=== PATIENT | female | born 1970 | race Caucasian/White ===

== ENCOUNTER → 2018-07-29 | Outpatient (CLI) | payer OTHER ==
[~2018-07-29] MED LIST: ALBU90OI INH; AZIT250 PO; AZIT500 PO; CARI350 PO; CEPH500 PO; CETI10 PO; CIPR500 PO; CLAR500 PO; CLIN150 PO; CLIN300 PO; CODGUAEL PO; CYCL10 PO; DIPH50 PO; DULO30; DULO30 PO; DULO60; DULO60 PO; ESCI10; HYDACE10B; HYDACE10B PO; HYDACE5 PO; HYDACE5325 PO; HYDACE7.5 PO; IBUP200 PO; IBUP400; IBUP800; IBUP800 PO; MELO7.5; MELO7.5 PO; META400 PO; META800; META800 PO; METPRE4DP PO; MULVITA; NAPR500 PO; NAPR550 PO; OXYACE10 PO; OXYACE5T PO; PHENA100 PO; PHENA200 PO; PROACE100 PO; PROM25 PO; PSEU120ER PO; ROFE25; RXCLIN PO; RXCYCL10 PO; RXHYDACE PO; RXMETA400 PO; RXMETA800 PO; RXNAPNA550 PO; RXPROACE PO; RXTRAM50 PO; SULF10OPSA OU; SULTRIDS PO; TRAM50 PO
== END | disposition home or self-care (01) ==
LOC: LAB EV 12:49 → LAB SHORT 12:49
DX: N39.0 Urinary tract infection, site not specified (principal)
CPT/HCPCS: 87077; 87086; 87186

== ENCOUNTER 2020-11-30 11:32 | Emergency (ER) | payer OTHER ==
[~2020-11-30] VITALS: Ht 165.1 cm; Wt 62.6 kg
[2020-11-30 12:14] LABS: BASOPHILS ABSOLUTE AUTO 0.06 K/mm3 (0.00-0.23); BASOPHILS PERCENT AUTO 1 % (0-2); EOSINOPHILS ABSOLUTE AUTO 0.09 K/mm3 (0.00-0.68); EOSINOPHILS PERCENT AUTO 1 % (0-6); Hematocrit 34.6 % (33.0-51.0); IMMATURE GRAN ABSOLUTE AUTO 0.01 K/mm3 (0.00-0.10); IMMATURE GRAN PERCENT AUTO 0 % (0-1); LYMPHOCYTES PERCENT AUTO 29 % (21-46); MONOCYTES ABSOLUTE AUTO 0.56 K/mm3 (0.16-1.47); MONOCYTES PERCENT AUTO 8 % (4-13); Mean Corpuscular HGB 28.4 pg (26.0-34.0); Mean Corpuscular HGB Conc 31.8 g/dL (31.5-36.5); Mean Corpuscular Volume 89 fL (80-100); Mean Platelet Volume 10.6 fL (9.1-12.4); NEUTROPHILS ABSOLUTE AUTO 4.03 K/mm3 (1.96-9.15); NEUTROPHILS PERCENT AUTO 61 % (41-73); Platelet Count 282 K/mm3 (150-400); RDW Coefficient Variation 13.2 % (11.7-14.2); RDW Standard Deviation 43.1 fL (35.1-46.3); Red Blood Cell Count 3.88 M/mm3 (3.80-5.20); White Blood Cell Count 6.65 K/mm3 (4.00-11.30)
[2020-11-30 12:42] LABS: Alanine Aminotransfer (ALT/SGP 23 U/L (12-78); Albumin, Blood 3.5 g/dL (3.4-5.0); Albumin/Globulin Ratio 0.9 (0.8-1.8); Alk Phos 56 U/L (50-136); Anion Gap 4 mmol/L (6-16); Aspartate Aminotrans (AST/SGOT 25 U/L (12-37); Bilirubin, Total 0.2 mg/dL (0.1-1.0); Blood Urea Nitrogen 11 mg/dL (8-24); Bun/Creatinine Ratio 12.9 (12.0-20.0); CO2, Blood 28 mmol/L (21-32); Calcium, Blood 8.8 mg/dL (8.5-10.1); Chloride, Blood 109 mmol/L (98-108); Creatinine, Blood 0.85 mg/dL (0.40-1.00); Globulin, Blood 3.8 g/dL (2.2-4.0); Glomerular Filtration Rate >60 (60-); Glucose, Blood 76 mg/dL (70-99); Potassium, Blood 3.8 mmol/L (3.5-5.5); Sodium, Blood 141 mmol/L (136-145); Total Protein, Blood 7.3 g/dL (6.4-8.2)
[2020-11-30 13:25] LABS: Source, Urine Voided
[2020-11-30 13:42] LABS: Appearance, Urine Clear (Clear); Bilirubin, Urine Neg (Neg); Blood, Urine Neg (Neg); Color, Urine Yellow (P-Yellow); Glucose Qualitative, Urine Neg (Neg); Ketones, Urine Neg (Neg); Leukocyte Esterase, Urine Neg (Neg); Nitrite, Urine Neg (Neg); Protein, Urine Neg (Neg); Specific Gravity, Urine 1.005 (1.003-1.022); Urobilinogen, Urine NORM (Normal)
== END 2020-11-30 17:36 | disposition home or self-care (01) ==
LOC: ER 11:32
PROVIDERS: Physician Assistant
DX: K59.00 Constipation, unspecified (principal); Z88.0 Allergy status to penicillin
CPT/HCPCS: 36415; 74177; 76830; 76856; 80053; 81003; 81025; 83690; 85025; 96374-59; 96375; 96376; 99284-25; J2270; J2405; J7030; Q9967

== ENCOUNTER → 2024-02-17 | Outpatient (CLI) | payer OTHER ==
[2024-02-24 11:26] LABS: HPV HIGH RISK BY TMA Not Detected; HPV SOURCE Cervical
== END | disposition home or self-care (01) ==
LOC: LAB 09:07 → LAB SHORT 09:07
PROVIDERS: Advanced Practice Midwife
DX: Z01.419 Encounter for gynecological examination (general) (routine) without abnormal findings (principal)
CPT/HCPCS: 87624; G0123